=== PATIENT | female | born 1960 | race Caucasian/White ===

== ENCOUNTER → 2016-12-15 16:20 | Outpatient (CLI) | payer BC | END | disposition home or self-care (01) | LOC: D.MAMMO 11-28 09:15 | DX: Z12.31 Encounter for screening mammogram for malignant neoplasm of breast (principal) ==

== ENCOUNTER → 2018-01-01 06:58 | Outpatient (CLI) | payer BC | END | disposition home or self-care (01) | LOC: D.MRI 06:58 | DX: M79.671 Pain in right foot (principal) ==

== ENCOUNTER 2018-05-20 18:47 | Emergency (ER) | payer BC ==
[~2018-05-20] VITALS: Ht 152.4 cm; Wt 116.4 kg
[2018-05-20 18:54] VITALS: Ht 152.4 cm; Wt 116.4 kg
[2018-05-20] MEDS ORDERED: OMEPRAZOLE20 M1 PO (18:54)
[2018-05-20] MEDS ORDERED: FLAGYL70 GM VG (18:55)
[2018-05-20] MEDS ORDERED: LEXAPRO10 MG PO (18:55)
[2018-05-20] MEDS ORDERED: HYDROCHLOROTHIA25 MG PO (18:55)
[2018-05-20] MEDS ORDERED: MICARDIS40 MG PO (18:55)
[2018-05-20 19:23] LABS: APPEARANCE CLEAR (CLEAR); BILIRUBIN NEGATIVE (NEGATIVE); COLOR YELLOW (YELLOW); GLUCOSE NEGATIVE (NEGATIVE); KETONE NEGATIVE (NEGATIVE); NITRITE NEGATIVE (NEGATIVE); PROTEIN NEGATIVE (NEGATIVE); RED CELLS - URINE 0-5 /hpf (0-5); SPECIFIC GRAVITY 1.015 (1.005-1.020); UROBILINOGEN NORMAL (NORMAL); WHITE CELLS - URINE NSEEN /hpf (0-5)
[2018-05-20 19:35] LABS: BASOPHILS 0.2 % (0-2); EOSINOPHILS 1.2 % (0-7); HEMATOCRIT 38.9 % (36.0-48.0); HEMOGLOBIN 12.8 g/dL (12-16); IMMATURE GRANULOCYTES 0.1 % (0-5); LYMPHOCYTES 27.2 % (15-50); MCH 29.7 pg (26.0-34.0); MCHC 32.9 g/dL (31.0-37.0); MCV 90.3 fL (80.0-100.0); MEAN PLATELET VOLUME 10.8 fL (7.4-10.4); MONOCYTES 7.5 % (2-11); NEUTROPHILS 63.8 % (40-80); PLATELET COUNT 270 10x3/uL (130-400); RBC 4.31 10x6/uL (4.00-5.40); RDW 14.1 % (11.5-14.5); WBC 8.3 10x3/uL (4.8-10.8)
[2018-05-20 19:48] LABS: ALBUMIN 3.6 g/dL (3.4-5.0); ANION GAP 12.4 mmol/L (8-16); BILIRUBIN - TOTAL 0.4 mg/dL (0.2-1.3); CALCIUM 8.8 mg/dL (8.5-10.1); CARBON DIOXIDE 28.5 mmol/L (21.0-32.0); CREATININE - SERUM 1.1 mg/dL (0.6-1.3); POTASSIUM - SERUM 3.9 mmol/L (3.5-5.1); PROTEIN - SERUM 7.2 g/dL (6.4-8.2)
[2018-05-21] MEDS ORDERED: PROTONIX40 MG PO (00:22)
[2018-05-21] MEDS ORDERED: ZOFRAN4 MG PO (00:22)
[2018-05-21 00:31] VITALS: BP 154/68
== END 2018-05-21 00:31 | disposition home or self-care (01) ==
LOC: D.ER 18:47
PROVIDERS: Family Medicine
DX: R11.2 Nausea with vomiting, unspecified (principal); N76.0 Acute vaginitis; B96.89 Other specified bacterial agents as the cause of diseases classified elsewhere; K21.9 Gastro-esophageal reflux disease without esophagitis; F17.200 Nicotine dependence, unspecified, uncomplicated; R19.7 Diarrhea, unspecified; I10 Essential (primary) hypertension

== ENCOUNTER 2019-03-07 08:00 | Outpatient (CLI) | payer BC ==
[2018-05-20 18:54] VITALS: BMI 50.1
[~2019-03-07 08:00] MED LIST: FLAGYL70 GM VG; HYDROCHLOROTHIA25 MG PO; LEXAPRO10 MG PO; MICARDIS40 MG PO; OMEPRAZOLE20 M1 PO; PROTONIX40 MG PO; ZOFRAN4 MG PO
== END 2019-03-07 23:59 | disposition home or self-care (01) ==
LOC: D.MAMMO 08:00
PROVIDERS: ATTEND Family Medicine
DX: Z12.31 Encounter for screening mammogram for malignant neoplasm of breast (principal)